=== PATIENT | female | born 1980 | race Caucasian/White ===

== ENCOUNTER 2018-08-12 00:01 | Emergency (ER) | payer OTHER ==
[~2018-08-12] VITALS: Ht 170.2 cm; Wt 101.4 kg
[2018-08-12] MEDS ORDERED: ZITHROMAX 250M250 MG PO (01:20)
[2018-08-12] MEDS ORDERED: RT ALBUTEROL CC18 GM IH (01:20)
[2018-08-12] MEDS ORDERED: PREDNISONE20 M1 PO (01:20)
[2018-08-12 01:27] VITALS: BP 160/92
== END 2018-08-12 01:27 | disposition home or self-care (01) ==
LOC: ED 00:01
DX: J40 Bronchitis, not specified as acute or chronic (principal); F17.200 Nicotine dependence, unspecified, uncomplicated; Z88.0 Allergy status to penicillin

== ENCOUNTER 2018-10-28 14:02 | Emergency (ER) | payer OTHER ==
[~2018-10-28 14:02] MED LIST: PREDNISONE20 M1 PO; RT ALBUTEROL CC18 GM IH; ZITHROMAX 250M250 MG PO
[2018-10-28 14:06] VITALS: BP 149/107
[2018-10-28] MEDS ORDERED: LISINOPRIL10 MG PO (14:08)
[2018-10-28] MEDS ORDERED: SINGULAIR 110 MG/TAB PO (14:08)
[2018-10-28] MEDS ORDERED: ESCITALOPRAM20 MG PO (14:08)
[2018-10-28] MEDS ORDERED: PROAIR HFA0.09 MG/AC IH (14:09)
[2018-10-28] MEDS ORDERED: QUALITY CHOICE325 MG PO (14:09)
[2018-10-28] MEDS ORDERED: ERGOCALCIFER50000 IU PO (14:09)
[2018-10-28 15:00] LABS: EOS # 0.3 (0.04-0.40); EOS % 4.5 % (1.0-5.0); HEMATOCRIT 42.1 % (37.0-47.0); HEMOGLOBIN 12.8 g/dL (12.5-16.0); LYMPH# 1.5 (1.50-4.00); MEAN CELL VOLUME 84 fl (78-100); MEAN CORPUSCULAR HEMOGLOBIN 26 pg (27-31); MEAN CORPUSCULAR HGB CONC 30 g/dL (33-37); MEAN PLATELET VOLUME 9.7 fl (7.4-10.4); MONO # 0.6 (0.20-0.80); PLATELET COUNT 275 K/mm3 (130-400); RED BLOOD COUNT 5.02 M/mm3 (4.10-5.30); RED CELL DISTRIBUTION WIDTH 15.4 % (11.5-14.5); WHITE BLOOD COUNT 7.5 K/mm3 (4.8-10.8)
[2018-10-28] MEDS ORDERED: GOOD NEIGHBOR P20 M1 PO (16:05)
[2018-10-28] MEDS ORDERED: FLONASE ALLERG9.9 ML NS (16:05)
== END 2018-10-28 16:07 | disposition home or self-care (01) ==
LOC: ED 14:02
PROVIDERS: Family Medicine
DX: R09.81 Nasal congestion (principal); R05 Cough; R53.83 Other fatigue; J45.909 Unspecified asthma, uncomplicated; K21.9 Gastro-esophageal reflux disease without esophagitis; I10 Essential (primary) hypertension; E28.2 Polycystic ovarian syndrome; D64.9 Anemia, unspecified; F17.210 Nicotine dependence, cigarettes, uncomplicated; Z90.710 Acquired absence of both cervix and uterus; Z96.22 Myringotomy tube(s) status

== ENCOUNTER → 2018-12-07 | Outpatient (CLI) | payer OTHER ==
[~2018-12-07] MED LIST changes: +ERGOCALCIFER50000 IU PO; +ESCITALOPRAM20 MG PO; +FLONASE ALLERG9.9 ML NS; +GOOD NEIGHBOR P20 M1 PO; +LISINOPRIL10 MG PO; +PROAIR HFA0.09 MG/AC IH; +QUALITY CHOICE325 MG PO; +SINGULAIR 110 MG/TAB PO
[2018-12-07 14:29] LABS: URINE APPEARANCE HAZY; URINE BILIRUBIN NEGATIVE (NEGATIVE); URINE BLOOD NEGATIVE (NEGATIVE); URINE COLOR YELLOW; URINE GLUCOSE NEGATIVE (NEGATIVE); URINE KETONE NEGATIVE (NEGATIVE); URINE LEUKOCYTE ESTERASE NEGATIVE (NEGATIVE); URINE MUCUS PRESENT (NOT PRESENT); URINE NITRATE NEGATIVE (NEGATIVE); URINE PROTEIN(semi-quant) TRACE mg/dL (NEGATIVE); URINE UROBILINOGEN NORMAL (NORMAL)
== END ==
LOC: LAB 12:34
DX: Z87.440 Personal history of urinary (tract) infections (principal)

== ENCOUNTER → 2018-12-17 | Outpatient (CLI) | payer OTHER ==
[2018-12-17 20:25] LABS: URINE APPEARANCE HAZY; URINE BILIRUBIN NEGATIVE (NEGATIVE); URINE BLOOD NEGATIVE (NEGATIVE); URINE COLOR YELLOW; URINE GLUCOSE NEGATIVE (NEGATIVE); URINE KETONE NEGATIVE (NEGATIVE); URINE LEUKOCYTE ESTERASE NEGATIVE (NEGATIVE); URINE NITRATE NEGATIVE (NEGATIVE); URINE PROTEIN(semi-quant) TRACE mg/dL (NEGATIVE); URINE UROBILINOGEN NORMAL (NORMAL)
== END ==
LOC: LAB 16:57
PROVIDERS: Physician Assistant
DX: R30.0 Dysuria (principal); Z87.440 Personal history of urinary (tract) infections; R05 Cough

== ENCOUNTER 2019-02-02 00:11 | Emergency (ER) | payer OTHER ==
[~2019-02-02] VITALS: Ht 170.2 cm; Wt 109.1 kg
[2019-02-02] MEDS ORDERED: PANTOPRAZOLE SO40 MG PO (00:48)
[2019-02-02] MEDS ORDERED: BREO ELLIPTA1 POW IH (00:48)
[2019-02-02] MEDS ORDERED: ATROVENT I0.2 MG/1 M IH (01:06)
[2019-02-02] MEDS ORDERED: PULMICORT0.5 MG/2 M IH (01:06)
[2019-02-02 01:14] VITALS: BP 140/91
== END 2019-02-02 01:14 | disposition home or self-care (01) ==
LOC: ED 00:11
DX: J45.909 Unspecified asthma, uncomplicated (principal); E28.2 Polycystic ovarian syndrome; F17.210 Nicotine dependence, cigarettes, uncomplicated; Z79.51 Long term (current) use of inhaled steroids

== ENCOUNTER → 2019-03-07 | Outpatient (CLI) | payer OTHER ==
[~2019-03-07] MED LIST changes: +ATROVENT I0.2 MG/1 M IH; +BENADRYL ALLERG25 M1 PO; +BREO ELLIPTA1 POW IH; +CEFDINIR300 MG PO; +EXCEDRIN MIGRA1 EACH PO; +PANTOPRAZOLE SO40 MG PO; +PULMICORT0.5 MG/2 M IH; +VALACYCLOVIR1 GM PO; +VITAMIN D50000 I2 PO
== END ==
LOC: LAB 11:58
DX: E05.00 Thyrotoxicosis with diffuse goiter without thyrotoxic crisis or storm (principal)

== ENCOUNTER 2019-03-10 14:55 | Emergency (ER) | payer OTHER ==
[~2019-03-10] VITALS: Ht 170.2 cm; Wt 105.5 kg
[~2019-03-10 14:55] MED LIST changes: -BENADRYL ALLERG25 M1 PO; -CEFDINIR300 MG PO; -EXCEDRIN MIGRA1 EACH PO; -VALACYCLOVIR1 GM PO; -VITAMIN D50000 I2 PO
[2019-03-10 16:12] LABS: EOS # 0.2 (0.04-0.40); EOS % 1.4 % (1.0-5.0); HEMOGLOBIN 13.4 g/dL (12.5-16.0); LYMPH# 2.1 (1.50-4.00); MEAN CELL VOLUME 87 fl (78-100); MEAN CORPUSCULAR HEMOGLOBIN 27 pg (27-31); MEAN CORPUSCULAR HGB CONC 31 g/dL (33-37); MEAN PLATELET VOLUME 9.4 fl (7.4-10.4); NEU # 8.3 (1.40-6.50); PLATELET COUNT 313 K/mm3 (130-400); RED BLOOD COUNT 5.06 M/mm3 (4.10-5.30); WHITE BLOOD COUNT 11.6 K/mm3 (4.8-10.8)
[2019-03-10 16:33] LABS: D-DIMER 0.42 mg/L FEU (0.15-0.50)
[2019-03-10 16:38] LABS: ALBUMIN 3.8 g/dL (3.5-5.0); ALT/SGPT 12 U/L (0-55); AST-SGOT 11 U/L (5-34); CALCIUM 9.4 mg/dL (8.4-10.2); CARBON DIOXIDE 24 mmol/L (22-29); GLUCOSE 108 mg/dL (65-105); POTASSIUM 3.6 mmol/L (3.5-5.1); SODIUM 137 mmol/L (136-145); TOTAL BILIRUBIN 0.2 mg/dL (0.2-1.2); TOTAL PROTEIN 6.5 g/dL (6.4-8.3)
[2019-03-10 16:40] LABS: TROPONIN-I < 0.03 ng/mL (<0.030)
[2019-03-10] MEDS ORDERED: CEFDINIR300 MG PO (17:03)
[2019-03-10] MEDS ORDERED: VALACYCLOVIR1 GM PO (17:07)
[2019-03-10] MEDS ORDERED: VITAMIN D50000 I2 PO (17:08)
[2019-03-10] MEDS ORDERED: BENADRYL ALLERG25 M1 PO (17:08)
[2019-03-10] MEDS ORDERED: EXCEDRIN MIGRA1 EACH PO (17:11)
[2019-03-10 17:45] VITALS: BP 130/81
== END 2019-03-10 17:43 | disposition home or self-care (01) ==
LOC: ED 14:55
PROVIDERS: Family Medicine
DX: J45.909 Unspecified asthma, uncomplicated (principal); F41.9 Anxiety disorder, unspecified; F32.9 Major depressive disorder, single episode, unspecified; G62.9 Polyneuropathy, unspecified; E28.2 Polycystic ovarian syndrome; F17.210 Nicotine dependence, cigarettes, uncomplicated; Z98.890 Other specified postprocedural states; Z79.51 Long term (current) use of inhaled steroids; Z79.82 Long term (current) use of aspirin

== ENCOUNTER 2019-03-29 15:37 | Emergency (ER) | payer OTHER ==
[~2019-03-29] VITALS: Ht 170.2 cm; Wt 109.1 kg
[~2019-03-29 15:37] MED LIST changes: +BENADRYL ALLERG25 M1 PO; +CEFDINIR300 MG PO; +EXCEDRIN MIGRA1 EACH PO; +VALACYCLOVIR1 GM PO; +VITAMIN D50000 I2 PO
[2019-03-29] MEDS ORDERED: WELLBUTRIN SR150 M2 PO (15:45)
[2019-03-29] MEDS ORDERED: ATROVENT I0.2 MG/1 M IH (15:47)
[2019-03-29] MEDS ORDERED: PULMICORT0.5 MG/2 M IH (15:48)
[2019-03-29] MEDS ORDERED: CYCLOBENZAPRINE10 M1 PO (17:56)
[2019-03-29 18:07] VITALS: BP 105/76
== END 2019-03-29 18:09 | disposition home or self-care (01) ==
LOC: ED 15:37
DX: S16.1XXA Strain of muscle, fascia and tendon at neck level, initial encounter (principal); F17.210 Nicotine dependence, cigarettes, uncomplicated; Z90.710 Acquired absence of both cervix and uterus; Z95.9 Presence of cardiac and vascular implant and graft, unspecified; Z88.0 Allergy status to penicillin; Z79.82 Long term (current) use of aspirin; Z79.51 Long term (current) use of inhaled steroids; W01.198A Fall on same level from slipping, tripping and stumbling with subsequent striking against other object, initial encounter; Y92.009 Unspecified place in unspecified non-institutional (private) residence as the place of occurrence of the external cause
CPT/HCPCS: J1885

== ENCOUNTER → 2019-09-06 | Outpatient (CLI) | payer OTHER ==
[~2019-09-06] MED LIST changes: +CYCLOBENZAPRINE10 M1 PO; +WELLBUTRIN SR150 M2 PO
[2019-09-09 14:24] LABS: ANA SCREEN with REFLEX Negative (Negative); SJOGRENS SSA 5 U/mL (0-99); SJOGRENS SSB 6 U/mL (0-99)
== END ==
LOC: LAB 10:56
PROVIDERS: Psychiatry & Neurology Neurology
DX: G89.4 Chronic pain syndrome (principal); R20.2 Paresthesia of skin; R20.0 Anesthesia of skin; Z86.39 Personal history of other endocrine, nutritional and metabolic disease

== ENCOUNTER 2020-05-16 10:31 | Emergency (ER) | payer OTHER ==
[~2020-05-16] VITALS: Ht 170.2 cm; Wt 117.9 kg
[2020-05-16 11:09] LABS: HEMATOCRIT 46.4 % (37.0-47.0); HEMOGLOBIN 14.5 g/dL (12.5-16.0); MEAN CELL VOLUME 84 fl (78-100); MEAN CORPUSCULAR HEMOGLOBIN 26 pg (27-31); MEAN CORPUSCULAR HGB CONC 31 g/dL (33-37); MEAN PLATELET VOLUME 9.9 fl (7.4-10.4); PLATELET COUNT 304 K/mm3 (130-400); RED BLOOD COUNT 5.52 M/mm3 (4.10-5.30); RED CELL DISTRIBUTION WIDTH 15.3 % (11.5-14.5); WHITE BLOOD COUNT 15.7 K/mm3 (4.8-10.8)
[2020-05-16 11:16] LABS: ALBUMIN 4.4 g/dL (3.5-5.0)
[2020-05-16 11:17] LABS: POTASSIUM 4.2 mmol/L (3.5-5.1)
[2020-05-16 11:17] LABS: URINE APPEARANCE CLOUDY; URINE COLOR YELLOW
[2020-05-16 11:18] LABS: CALCIUM 9.4 mg/dL (8.3-10.5)
[2020-05-16 11:18] LABS: URINE BILIRUBIN NEGATIVE (NEGATIVE); URINE BLOOD 50 ery/uL (NEGATIVE); URINE GLUCOSE NEGATIVE (NEGATIVE); URINE KETONE NEGATIVE (NEGATIVE); URINE LEUKOCYTE ESTERASE 2+ (NEGATIVE); URINE MUCUS PRESENT (NOT PRESENT); URINE NITRATE POSITIVE (NEGATIVE); URINE PROTEIN(semi-quant) 2+ mg/dL (NEGATIVE); URINE UROBILINOGEN NORMAL (NORMAL); URINE WBC 31-50 /hpf (0-3)
[2020-05-16 11:19] LABS: TOTAL PROTEIN 8.2 g/dL (6.4-8.3)
[2020-05-16 11:21] LABS: TOTAL BILIRUBIN 0.3 mg/dL (0.2-1.2)
[2020-05-16 11:22] LABS: BAND 2 % (0-10); LYMPHOCYTE 7 % (20-51); MONOCYTE 7 % (3-10); NEUTROPHILS 82 % (42-75)
[2020-05-16] MEDS ORDERED: VENLAFAXINE HY150 MG PO (12:42)
[2020-05-16] MEDS ORDERED: PREGABALIN100 MG PO (12:43)
[2020-05-16] MEDS ORDERED: ZYRTEC ALLERGY10 MG PO (12:43)
[2020-05-16 13:22] VITALS: BP 154/113
== END 2020-05-16 13:41 | disposition short-term general hospital (02) ==
LOC: ED 10:31
PROVIDERS: Family Medicine
DX: N13.2 Hydronephrosis with renal and ureteral calculous obstruction (principal); N12 Tubulo-interstitial nephritis, not specified as acute or chronic; D72.829 Elevated white blood cell count, unspecified; J45.20 Mild intermittent asthma, uncomplicated; M79.7 Fibromyalgia; I10 Essential (primary) hypertension; K21.9 Gastro-esophageal reflux disease without esophagitis; F17.210 Nicotine dependence, cigarettes, uncomplicated; Z95.5 Presence of coronary angioplasty implant and graft; Z88.0 Allergy status to penicillin; Z88.1 Allergy status to other antibiotic agents
CPT/HCPCS: J2270; J2405; J7030